=== PATIENT | female | born 1965 | race Caucasian/White ===

== ENCOUNTER 2017-02-23 17:13 | Observation (INO) | payer OTHER ==
--- NOTE | ~2017-02-23 | TH ---
Unit #: [id number] #: [id number] Patient: IZA MERCEDES [id number] [address] [address] [id number] I MR#: [id number] NAME: IZA MERCEDES. : 1965 SEX: F STUDY DATE/TIME: 02/24/2017 UNIT: C5B ROOM: 549 STUDY DESCRIPTION: Cardiolite Study Attending Physician: Anthony Bennett M.D. Primary Care Physician: Abeba Mooney M.D. CARDIOLOGY REPORT EXAM Cardiolite Study. DESCRIPTION OF PROCEDURE This 52-year-old patient received 0.4 mg of Lexiscan intravenously followed by 29.4 mCi of technetium-99 Cardiolite and images were obtained according to a standard SPECT protocol. For rest images, 9.47 mCi of Cardiolite was injected. Images were reviewed in both phases. FINDINGS Overall study quality is excellent. LV cavity size is normal in both images. There is no lung activity. RV is normal. Rotating raw data showed no significant artifact, soft tissue attenuation, or GI uptake. Review of SPECT images showed normal homogeneous radiotracer concentration throughout the myocardium in both the stress and rest images. Gated images showed normal LV wall thickening and wall motion with an estimated LV ejection fraction of 68%. IMPRESSION 1. Myocardial perfusion imaging is normal. 2. No evidence of ischemia or infarct. 3. Normal left ventricle dimensions. 4. Normal systolic left ventricular function with an estimated left ventricular ejection fraction of 68%. 1. Dictated by... Lita Hahn/ronny TD: 02/24/2017 16:53 JOB #: [id number] CARDIOLOGY REPORT Page 1 of 1 X Kayla Multani MD CARDIOLOGY REPORT
--- NOTE | ~2017-02-23 | ST ---
Unit #: [id number] #: [id number] Patient: IZA MERCEDES [id number] [address] [address] [id number] I MR#: [id number] NAME: IZA MERCEDES. : 1965 SEX: F STUDY DATE/TIME: 02/24/2017 UNIT: C5B ROOM: [facility] STUDY DESCRIPTION: Attending Physician: Anthony Bennett M.D. Primary Care Physician: Abeba Mooney M.D. CARDIOLOGY REPORT EXAM Nuclear study. DESCRIPTION OF PROCEDURE AND FINDINGS Baseline EKG normal sinus rhythm, nonspecific ST and T changes. Resting heart rate 93 per minute and blood pressure 156/91. This 52-year-old patient received 0.4 mg of Lexiscan intravenously during the test. No ischemic changes noted. No arrhythmias noted. Blood pressure was stable. INTERPRETATION 1. Nondiagnostic EKG during Lexiscan. 2. No arrhythmias noted. 3. Stable blood pressure during the test. 4. Correlate with a Cardiolite study. 1. Dictated by... Lita Hahn/ronny TD: 02/24/2017 16:44 JOB #: [id number] CARDIOLOGY REPORT Page 1 of 1 X Kayla Multani MD CARDIOLOGY REPORT
--- NOTE | ~2017-02-23 | EKG ---
PATIENT: IZA MERCEDES UNIT #: [id number] Ventricular Rate: 75 BPM Atrial Rate: 75 BPM P-R Interval: 144 ms QRS Duration: 92 ms Q-T Interval: 438 ms QTC Calculation(Bezet): 489 ms P [place]: 32 degrees Calculated R Freedom: 36 degrees Calculated T Freedom: 116 degrees Diagnosis Line: Normal sinus rhythm Diagnosis Line: T wave abnormality, consider lateral ischemia Diagnosis Line: Prolonged QT Diagnosis Line: Abnormal ECG Diagnosis Line: When compared with ECG of 11-NOV-2016 16:07, Diagnosis Line: No significant change was found Diagnosis Line: Confirmed by RILEY DOWD MD ([id number]) on 02/24/2017 Diagnosis Line: 11:29:42 PM INTERPRETING MD: NILE LEW
--- NOTE | ~2017-02-23 | EKG ---
PATIENT: IZA MERCEDES UNIT #: [id number] Ventricular Rate: 103 BPM Atrial Rate: 103 BPM P-R Interval: 128 ms QRS Duration: 82 ms Q-T Interval: 342 ms QTC Calculation(Bezet): 448 ms P [place]: 21 degrees Calculated R [place]: 30 degrees Calculated T [place]: 126 degrees Diagnosis Line: Sinus tachycardia Diagnosis Line: ST and T wave abnormality, consider lateral ischemia Diagnosis Line: Abnormal ECG Diagnosis Line: When compared with ECG of 11-NOV-2016 16:07, Diagnosis Line: No significant change was found Diagnosis Line: Confirmed by AFSHAN SKINNER MD ([id number]) on Diagnosis Line: 03/12/2017 7:11:04 AM INTERPRETING RONIT GASPAR
--- NOTE | ~2017-02-23 | DS ---
Unit #: [id number] #: [id number] Patient: IZA MERCEDES [id number] [facility]. [place], [place] [address] [id number] I MR#: [id number] NAME: IZA MERCEDES. ROOM: 549 Age: 52 Sex: F Admission Date: 02/23/2017 : 1965 Discharge Date: 02/24/2017 Attending Physician: Anthony Bennett M.D. Primary Care Physician: Abeba Mooney M.D. DISCHARGE SUMMARY HISTORY This 52-year-old white female patient has been complaining of headache and uncontrolled hypertension. She also has some midsternal chest pains. At [facility] blood pressure on 02/16/17 was 185/88. She had a CT of the head, which showed mild acute sinusitis. She has diabetes, spinal stenosis and migraines. At home she has been on lisinopril. PHYSICAL EXAMINATION VITAL SIGNS: At the time of admission, blood pressure was 196/109, heart rate 76, respiratory rate 18 per minute. NECK: No JVD. HEART: S1, S2, normal. No S3, S4 noted. LUNGS: Clear. ABDOMEN: Soft. EXTREMITIES: No pedal edema. INITIAL IMPRESSION 1. Chest pain, probably musculoskeletal origin. 2. Uncontrolled hypertension. 3. Diabetes. 4. Spinal stenosis. 5. Cervical spine surgery. HOSPITAL COURSE The patient was started on amlodipine 5 mg daily and Lipitor 80 mg q.h.s. She had a Cardiolite study, which showed no ischemia. Echocardiogram showed normal LV function. At this time she will be discharged home. She will stay on her previous home medications. DISCHARGE MEDICATIONS 1. Loratadine. 2. Promethazine. 3. Lipitor. 4. Inderal. 5. Insulin. 6. She will also take amlodipine 5 mg daily now. FOLLOW-UP Follow up with PCP in about 2 weeks. DIET Healthy heart diet. ACTIVITIES Unit #: [id number] #: [id number] Patient: IZA MERCEDES As tolerated. NOTE: Discharge process took more 30 minutes. Dictated by... Kayla Multani M.D. PAOLO/cristopher TD: 02/25/2017 13:16 JOB #: [id number] DISCHARGE SUMMARY Page 1 of 1 X Kayla Multani MD DISCHARGE SUMMARY
--- NOTE | ~2017-02-23 | HP ---
Unit #: [id number] #: [id number] Patient: IZA MERCEDES [id number] [facility] [address] [facility]. [place], [place] [address] [id number] I MR#: [id number] NAME: IZA MERCEDES. ROOM: 549 Age: 52 Sex: F Admission Date: 02/23/2017 : 1965 Attending Physician: Anthony Bennett M.D. Primary Care Physician: Abeba Mooney M.D. HISTORY AND PHYSICAL CHIEF COMPLAINT Chest pain and hypertension. HISTORY OF PRESENT ILLNESS Ms. Mercedes is a 52-year-old female who presented to [facility] on 02/06/2017 with a complaint of headache. She was noted to have a CT of the head which showed mild acute sinusitis, otherwise normal. Blood pressure was elevated at 129/108 and 185/88 and she was discharged with plans to follow up as an outpatient. She presented again to [facility] yesterday at 4:56 p.m. with a complaint of high blood pressure. She states that over the last few months she has noted that her blood pressure has been sporadically high. She states that last week it was more elevated than normal. [facility] to her spinal stenosis treatments and was noted to have elevated blood pressure and was sent to the emergency room. Since then she has noticed that her blood pressures have been very labile and that she has had occasional headache that is quite severe when blood pressures are elevated. Yesterday she got upset. Her heart rate elevated and she also felt some chest pain in the midsternal area of her chest suddenly start. She states that the pain is worse with a deep breath or certain movements. She also is feeling some lightheadedness with that pain as well as some nausea. Currently now during my interview her pain is still present, but much more controlled than at admission. She has received some nitroglycerin, aspirin and Tylenol. PRIOR CARDIAC TESTING HISTORY Stress test years ago which she thinks was completed due to atypical chest pain. PAST MEDICAL HISTORY 1. Hypertension. 2. Gastroesophageal reflux disease. 3. Insulin dependent diabetes. 4. Spinal stenosis. 5. Degenerative joint disease. 6. Degenerative disk disease. 7. Frequent migraine headaches. 8. Anxiety. 9. Appendectomy. 10. Cholecystectomy. 11. Cervical spine fusion times two. 12. Tonsillectomy. 13. Ulnar nerve left arm surgery. Unit #: [id number] #: [id number] Patient: IZA MECREDES 14. Ectopic . 15. Fatty tumor removal from liver. 16. Toe surgery. 17. Hemorrhoidectomy. SOCIAL HISTORY The patient quit smoking four years ago. She denies the use of drugs. She states she only used alcoholic beverages as a young person. FAMILY HISTORY Her mother had coronary disease with stents placed at age 47 to 48. She had coronary artery bypass grafting in her 50s. Her brother had myocardial infarction in his 40s. ALLERGIES Penicillin, sulfa drugs, trimethoprim, ciprofloxacin, sumatriptan, meperidine, Toradol, clarithromycin. CURRENT HOME MEDICATIONS 1. Phenergan 25 mg q.6 h. p.r.n. 2. Frederick 7.5/325 mg q.6 h. p.r.n. 3. Claritin 10 mg daily. 4. Inderal 40 mg b.i.d. p.r.n. 5. Lasix 20 mg daily. 6. Lipitor 80 mg daily. 7. Insulin 60 units subcutaneous b.i.d. 8. Humalog insulin 20 units subcutaneous t.i.d. with meals. 9. Dicyclomine 10 mg q.6 h. p.r.n. 10. Prinivil 20 mg daily. 11. Ibuprofen 800 mg q.8 h. p.r.n. 12. Zanaflex 4 mg q.i.d. p.r.n. 13. Protonix 40 mg daily. 14. Benadryl 25 mg p.o. q.4-6 h. p.r.n. 15. Ropinirole 3 mg daily. REVIEW OF SYSTEMS GENERAL: Denies any fevers, chills, flu-like symptoms or unintentional weight loss. SKIN: Denies any rashes, ulcerations or wounds. HEADACHE: Current. EYES: Denies any sudden change in vision. EARS: Denies any sudden change in hearing. BLEEDING: Denies epistaxis, hemoptysis, hematuria or melena. THROAT: Denies any problems swallowing. LUNGS: Denies any wheeze or cough. Positive for shortness of breath. CHEST: Positive for pain. Positive for palpitations, tachycardia and PND, but no orthopnea. GI: Positive for constant nausea because of back pain. She had some diarrhea very early hours this morning. : Denies any burning or urgency. EXTREMITIES: She states that she has had bilateral lower extremity swelling lately. SPINE: Positive for chronic back pain. No scoliosis. NEUROLOGIC: Positive for constant numbness and tingling and she uses a walker or a scooter due to unsteadiness on her feet. PHYSICAL EXAMINATION GENERAL: Well-developed, well-nourished white female in no acute Unit #: [id number] #: [id number] Patient: IZA MERCEDES, resting in the bed. VITALS: Blood pressure was 196/109 on admission. Last recorded vital signs are temperature 98.1, pulse 76, respiratory rate 18, blood pressure 123/61, O2 saturation 97%. 238 pounds. SKIN: No obvious rashes or ulcerations noted. HEENT: Eyes, Pupils equally round and reactive to light and accommodation. No xanthelasma. Oral, poor dentition. Moist mucous membranes. NECK: No carotid bruits auscultated bilaterally. No jugular venous distension. SPINE: No scoliosis. CHEST: Clear to auscultation bilaterally. No wheezes, rales or rhonchi. HEART: S1 and S2. No murmur, rub, gallop or lift. ABDOMEN: Soft and nontender. Positive bowel sounds. EXTREMITIES: Bilateral pedal pulses plus 1. No edema. NEUROLOGIC: Alert and oriented times three. Speech is clear. No obvious neurologic deficits. DIAGNOSTIC STUDIES IMAGING: Chest x-ray shows on acute pulmonary findings. LABORATORY: Magnesium 1.6, BNP 10, troponin less than 0.03 times 2 and less than 0.05 times 2. Urine drug screen positive for opiates and TCA. Hemoglobin 13.9, hematocrit 41.3, platelets 105, white blood cell count 4.9. Urinalysis shows 5-10 WBCs and 1+ bacteria. Sodium 140, potassium 3.8, BUN 14, creatinine 0.7, AST 51, ALT 42. ASSESSMENT 1. Musculoskeletal chest pain/atypical chest pain. 2. Uncontrolled hypertension. 3. Insulin dependent diabetes. 4. Spinal stenosis. 5. History of cervical spine surgery. 6. Former tobacco abuse. 7. Positive family history for premature coronary artery disease. 8. Frequent migraine headaches. PLAN Dr. Davis has evaluated Ms. Mercedes at the bedside and at this point we will add Norvasc 5 mg daily for better blood pressure control. We will also do a Cardiolite stress test and two-dimensional echocardiogram. Further recommendations will be based on the above mentioned testing. Dictated by Dinorah Leach A.P.R.N. for Lita Mauro/dudley TD: 02/24/2017 11:21 JOB #: [id number] Unit #: [id number] #: [id number] Patient: IZA MERCEDES HISTORY AND PHYSICAL Page 1 of 1 X X HISTORY AND PHYSICAL
--- NOTE | ~2017-02-23 | CR72 ---
[facility]. [facility] A Service of [facility] & [facility] RADIOLOGY TEXT RESULTS PATIENT: IZA MERCEDES LOCATION: SED : [birth year] UNIT #: [id number] AGE: [address]: Geetha Young MD SEX: F ORDER DR: [id number] MR#: [id number] Acc #: [id number] NAME: IZA MERCEDES : 1965 SEX: F STUDY DATE/TIME: 02/23/2017 17:49 UNIT: SED ROOM: STUDY DESCRIPTION: CR Chest Single View Portable Attending Physician: Geetha Young M.D. Ordering Physician: Physician Non-Staff Primary Care Physician: Abeba Mooney M.D. MEDICAL IMAGING REPORT This report is preliminary unless electronic signature is present. EXAM Single-view chest. INDICATION Congestive heart failure. Hypertension and leg swelling. 1-week duration. FINDINGS Single portable AP view of the chest compared to 02/16/2017. Heart and mediastinal contours are normal. Lungs are clear. No pleural effusion. IMPRESSION No acute cardiopulmonary findings. Dictated by... Ramírez Mathias M.D. THIS IS AN ELECTRONICALLY VERIFIED REPORT Ramírez Mathias M.D. at 02/23/2017 10:08 PM EDWAR/maria c TD: 02/23/2017 21:55 JOB #: [id number] MEDICAL IMAGING REPORT Page 1 of 1
[~2017-02-23 17:13] MED LIST: AMITRYPTYLINE PO; ASPIRIN81 M2; BACLOFEN10 MG PO; BUSPAR15 MG PO; CELEXA20 MG PO; CIPRO PO; CITALOPRAM HBR10 MG PO; CLEOCIN PO; DEPAKOTE PO; DOXYCYCLINE PO; FLEXERIL10 MG PO; GLUCOPHAGE XR500 MG PO; HYDROCODON-ACE1 EAC1; IBUPROFEN800 MG PO; JANUVIA PO; KADIAN PO; LAMICTAL100 MG PO; LANTUS100 U/ML; LASIX PO; LIPITOR PO; MAGIC MOUTH WASH PO; MORPHINE IR PO; MS CONTIN PO; NEURONTIN PO; ONDANSETRON HCL4 MG PO; PERCOCET5/325 PO; PHENERGAN PO; PHENERGAN PR; PHENERGAN25 MG; PRILOSEC PO; PRINIVIL20 M1 PO; PROPRANOLOL PO; REGLAN10 MG PO; RELPAX40 MG PO; REMERON PO; REQUIP0.5 MG PO; TYLENOL #3 PO; VICODIN 5/500 T1 TAB PO; ZANAFLEX PO; ZOFRANODT PO; ZOMIG5 MG/SPRAY
[2017-02-23] MEDS ORDERED: INSULIN SUBQ (17:15)
[2017-02-23] MEDS ORDERED: ROPINIROLE PO (17:16)
[2017-02-23] MEDS ORDERED: MOTRIN PO (17:16)
[2017-02-23] MEDS ORDERED: INSULIN (17:16)
[2017-02-23] MEDS ORDERED: LISINOPRIL PO (17:17)
[2017-02-23] MEDS ORDERED: ZANAFLEX PO (17:17)
[2017-02-23] MEDS ORDERED: HYDROCODONE PO (17:17)
[2017-02-23] MEDS ORDERED: ATORVASTATIN PO (17:17)
[2017-02-23] MEDS ORDERED: STOMACH MED PO (17:18)
[2017-02-23] MEDS ORDERED: BENADRYL PO (17:18)
[2017-02-23 17:52] LABS: BASOPHIL% 0.7 % (0-2.5); EOSINOPHIL# 0.1 X10e3 (0-0.7); EOSINOPHIL% 1.6 % (0.0-7.0); HEMATOCRIT 41.3 % (35.0-45.0); HEMOGLOBIN 13.9 gm/dL (12.0-16.0); LYMPHOCYTE# 1.9 X10e3 (1.0-3.5); LYMPHOCYTE% 38.4 % (17.0-45.0); MEAN CELL VOLUME 88.1 FL (83-96); MEAN CORPUSCULAR HEMOGLOBIN 29.7 PG (28-34); MEAN CORPUSCULAR HGB CONC 33.7 g/dL (30-36); MEAN PLATELET VOLUME 9.1 FL (6.5-11.5); MONOCYTE# 0.4 X10e3 (0-1.0); MONOCYTE% 7.7 % (3.0-12.0); NEUTROPHIL# 2.5 X10e3 (1.5-7.1); NEUTROPHIL% 51.6 % (40-75); PLATELET COUNT 105 X10e3 (140-420); RED BLOOD COUNT 4.69 X10e (3.90-5.30); RED CELL DISTRIBUTION WIDTH 14.7 % (11.0-15.5); WHITE BLOOD COUNT 4.9 X10e3 (4.0-10.5)
[2017-02-23 17:59] LABS: URINE SOURCE CLEAN CATCH
[2017-02-23 18:05] LABS: POC - CKMB 1.3 ng/mL (0.0-7.9)
[2017-02-23 18:06] LABS: POC - MYOGLOBIN 81.9 ng/mL (0.0-169.0); POC - TROPONIN <0.05 ng/mL (<=0.05)
[2017-02-23 18:11] LABS: AMPHETAMINE NEG (NEG); BARBITURATES NEG (NEG); BENZODIAZEPINES NEG (NEG); COCAINE NEG (NEG); MARIJUANA NEG (NEG); OPIATES POS (NEG); TRICYCLIC ANTIDEPRESSANTS POS (NEG); U METHADONE NEG (NEG)
[2017-02-23 18:16] LABS: DIFF IND NO
[2017-02-23 18:16] LABS: MICRO INDICATED? YES; URINE APPEARANCE HAZY; URINE BILIRUBIN NEG (NEG); URINE BLOOD NEG (NEG); URINE COLOR YELLOW; URINE GLUCOSE NEG (NORM); URINE KETONE NEG (NEG); URINE LEUKOCYTE ESTERASE 1+ (NEG); URINE NITRATE NEG (NEG); URINE PROTEIN NEG (NEG); URINE UROBILINOGEN 0.2 MG/DL (NORM)
[2017-02-23 18:19] LABS: URINE BACTERIA 1+ (NEG); URINE SQUAMOUS EPITHELIAL CELL OCCAS /[HPF]; URINE TRANSITIONAL EPI CELLS FEW /[HPF]
[2017-02-23 18:23] LABS: ALBUMIN SERUM 3.9 g/dL (3.5-5.0); BILIRUBIN, DIRECT 0.1 mg/dL (0.0-0.2); BILIRUBIN,INDIRECT 0.6 mg/dL (0.0-0.9); BILIRUBIN,TOTAL 0.7 mg/dL (0.2-2.0); CALCIUM SERUM 9.6 mg/dL (8.4-10.2); CREATININE SERUM 0.7 mg/dL (0.6-1.4); POTASSIUM 3.8 mmol/L (3.5-5.1); PROTEIN TOTAL SERUM 7.7 g/dL (6.0-8.3)
[2017-02-23 19:34] LABS: POC - CKMB <1.0 ng/mL (0.0-7.9)
[2017-02-23 19:35] LABS: POC - MYOGLOBIN 71.9 ng/mL (0.0-169.0); POC - TROPONIN <0.05 ng/mL (<=0.05)
[2017-02-23] MEDS ORDERED: PHENERGAN25 M1 PO (22:44)
[2017-02-23] MEDS ORDERED: HYDROCODON-ACE1 EAC9 PO (22:44)
[2017-02-23] MEDS ORDERED: CLARITIN10 M2 PO (22:45)
[2017-02-23] MEDS ORDERED: INDERAL40 MG PO (22:45)
[2017-02-23] MEDS ORDERED: LIPITOR80 MG PO (22:46)
[2017-02-23] MEDS ORDERED: LASIX20 MG PO (22:46)
[2017-02-23] MEDS ORDERED: BASAGLAR INSULIN SUBQ (22:50)
[2017-02-23] MEDS ORDERED: HUMALOG100 U/M2 SUBQ (22:51)
[2017-02-23] MEDS ORDERED: LANTUS100 UNITS/ SUBQ (22:51)
[2017-02-23] MEDS ORDERED: DICYCLOMINE HCL10 MG PO (22:52)
[2017-02-23] MEDS ORDERED: PRINIVIL20 M1 PO (22:52)
[2017-02-23] MEDS ORDERED: IBUPROFEN800 MG PO (22:53)
[2017-02-23] MEDS ORDERED: PROTONIX PO (22:54)
[2017-02-23] MEDS ORDERED: ZANAFLEX4 M1 PO (22:54)
[2017-02-23] MEDS ORDERED: BENADRYL25 M3 PO (22:55)
[2017-02-23] MEDS ORDERED: ROPINIROLE HCL3 MG PO (22:56)
[2017-02-24 01:47] LABS: %MB 1.8 % (0.0-4.0); MB 1.2 ng/ml
[2017-02-24 07:26] LABS: CK TOTAL 53 IU/L (26-140)
[2017-02-24 15:03] LABS: CK TOTAL 59 IU/L (26-140)
[2017-02-24] MEDS ORDERED: LIPITOR80 MG PO (15:30)
[2017-02-24] MEDS ORDERED: AMLODIPINE BESYL5 MG PO (15:30)
== END 2017-02-24 18:15 | disposition home or self-care (01) ==
LOC: SED 17:13 → C5B 23:25
PROVIDERS: Emergency Medicine; Internal Medicine Cardiovascular Disease
DX: R07.89 Other chest pain (principal); I10 Essential (primary) hypertension; E11.9 Type 2 diabetes mellitus without complications; Z79.4 Long term (current) use of insulin; Z87.891 Personal history of nicotine dependence; Z82.49 Family history of ischemic heart disease and other diseases of the circulatory system; M48.00 Spinal stenosis, site unspecified; I51.7 Cardiomegaly; Z98.1 Arthrodesis status; Z90.49 Acquired absence of other specified parts of digestive tract; Z88.0 Allergy status to penicillin; Z88.2 Allergy status to sulfonamides; Z88.1 Allergy status to other antibiotic agents; Z88.8 Allergy status to other drugs, medicaments and biological substances
CPT/HCPCS: 36415; 71010; 78452; 80048; 80076; 80307; 81003; 82550; 82553; 82947; 83735; 83874; 83880; 84484; 85025; 93005; 93017; 93306; 99285; A9500; G0378; J1815; J2785